=== PATIENT | female | born 1960 | race Caucasian/White ===

== ENCOUNTER 2018-05-16 06:04 | Day surgery (SDC) | payer OTHER ==
[2018-05-16] MEDS ORDERED: PROPOFOL 40 ML (09:35)
== END 2018-05-16 10:32 | disposition home or self-care (01) ==
LOC: GIL 06:04
DX: R19.4 Change in bowel habit (principal); K29.70 Gastritis, unspecified, without bleeding; K44.9 Diaphragmatic hernia without obstruction or gangrene; K21.9 Gastro-esophageal reflux disease without esophagitis; K64.8 Other hemorrhoids
CPT/HCPCS: 43239; 88305